=== PATIENT | female | born 1975 | race Caucasian/White ===

== ENCOUNTER 2019-05-12 10:10 | Emergency (ER) | payer MEDICAID ==
[~2019-05-12] VITALS: Ht 154.9 cm; Wt 68.9 kg
[2019-05-12 10:15] VITALS: Ht 154.9 cm; Wt 68.9 kg
[2019-05-12 10:44] LABS: BASOPHIL % 0.4 % (0-2); RED CELL DISTRIBUTION WIDTH 12.9 % (11.5-14.5)
[2019-05-12 10:45] LABS: PLATELET COUNT 473 x10^3mcL (130-400)
[2019-05-12 11:13] LABS: CALCIUM 8.9 mg/dL (8.5-10.1); CARBON DIOXIDE 26.5 mmol/L (21-32); CHLORIDE SERUM 98 mmol/L (98-107); CREATININE SERUM 0.7 mg/dL (0.6-1.0); GFR1 > 60 mL/min; GLUCOSE SERUM 139 mg/dL (74-106); POTASSIUM SERUM 3.3 mmol/L (3.5-5.1); SODIUM SERUM 135 mmol/L (136-145)
[2019-05-12 11:17] LABS: ALKALINE PHOSPHATASE 122 U/L (46-116); ALT/SGPT 40 U/L (14-59); AST/SGOT 21 U/L (15-37); BILIRUBIN TOTAL 0.5 mg/dL (0.20-1.00); LIPASE 76 IU/L (73-393)
[2019-05-12 11:18] LABS: ALBUMIN 3.2 g/dL (3.4-5.0); TOTAL PROTEIN, SERUM 8.8 g/dL (6.4-8.2)
[2019-05-12 12:16] LABS: UA SPECIFIC GRAVITY <=1.005 (1.005-1.035); microscopic required? YES; urine erythrocyte 2+ (NEGATIVE)
[2019-05-12 12:59] VITALS: BP 140/81
== END 2019-05-12 12:59 | disposition home or self-care (01) ==
LOC: ED 10:10
PROVIDERS: Emergency Medicine
DX: K57.32 Diverticulitis of large intestine without perforation or abscess without bleeding (principal); J00 Acute nasopharyngitis [common cold]
CPT/HCPCS: 36415